=== PATIENT | female | born 1985 | race Two or more races ===

== ENCOUNTER 2020-03-07 02:14 | Observation (INO) ==
[2020-03-07] MEDS ORDERED: Morphine 2 MG/ML SYRINGE IV PRN ×2 (02:47)
[2020-03-07] MEDS ORDERED: Metoclopramide 5 MG/ML VIAL (10 mg) IV SLOW PU PRN (02:51)
[2020-03-07] MEDS ORDERED: Zosyn 3.375 GM IV - ED ONCE IV ONE (03:00)
[2020-03-07] MEDS ORDERED: NS 0.9% 1000 ml BAG 1,000 ML IV SCH (03:00)
[2020-03-07] MEDS ORDERED: NS 0.9% 1000 ml BAG 1,000 ML IV ONE ×2 (03:34→08:10)
[2020-03-07] MEDS ORDERED: Piperacillin/Tazobac ADVAN 3.375 GM in NS 0.9% 100 ml BAG 100 ML IV SCH (06:00)
[2020-03-07] MEDS ORDERED: Rocuronium 50 mg VIAL 10 mg/ml 5 ml VIAL (50 mg) ONE (11:03)
[2020-03-07] MEDS ORDERED: Succinylcholine 200 mg VIAL 20 mg/ml 10 ml VIAL (200 mg) ONE (11:03)
[2020-03-07] MEDS ORDERED: Midazolam 2 mg/2 ml VIAL 1 mg/ml 2 ml VIAL (2 mg) ONE (11:16)
[2020-03-07] MEDS ORDERED: fentaNYL 250 mcg/5 ml 50 MCG/ML 5 ml VIAL (250 MCG) ONE (11:16)
[2020-03-07] MEDS ORDERED: Propofol 10 MG/ML 20 ML BTL ONE (11:16)
[2020-03-07] MEDS ORDERED: Metoclopramide 5 MG/ML VIAL (10 mg) ONE (11:18)
[2020-03-07] MEDS ORDERED: Ondansetron 4 mg VIAL 2 MG/ML 2 ml VIAL ONE (11:18)
[2020-03-07] MEDS ORDERED: Dexamethasone IV 4 MG/ML VIAL 1 ml VIAL ONE (11:18)
[2020-03-07 11:33] LABS: ABS Eosinophils 0.4 10^3/ul (0-0.6); ABS Lymphocytes 1.4 10^3/ul (1.0-4.8); ABS Monocytes 0.6 10^3/ul (0-0.8); ABS Neutrophils 2.9 10^3/ul (1.5-7.7); Hematocrit 30 % (35-47); Hemoglobin 9.7 g/dL (12.0-16.0); Lymphocyte % 26.4 %; Mean Corpuscular HGB Conc 33 g/dL (31-36); Mean Corpuscular Hemoglobin 27 pg (27-31); Mean Corpuscular Volume 84 fL (80-97); Mean Platelet Volume 11.6 fL (7.4-10.4); Nucleated Red Blood Cells % 0.1; Platelet Count 124 10^3/uL (150-450); Red Blood Count 3.55 10^6 /uL (3.70-4.87); Red Cell Distribution Width 14 % (10-15); White Blood Count 5.2 10^3/uL (3.5-10.8)
[2020-03-07 11:39] LABS: Calcium 7.6 mg/dL (8.6-10.3); Potassium 3.8 mmol/L (3.5-5.0)
[2020-03-07 11:44] LABS: BUN/Creatinine Ratio 18.5 (8-20); EGFR African American 125.5 (>60); EGFR Non-African American 103.7 (>60)
[2020-03-07 12:06] LABS: Activated Partial Thrombo Time 28.9 seconds (26.0-38.0); INR 1.23 (0.82-1.09)
[2020-03-07] MEDS ORDERED: Acetaminophen IV 1 GM/100ML 100 ML ONE (13:48)
[2020-03-07] MEDS ORDERED: Esmolol 10 MG/ML 10 ML (100 mg) ONE (14:38)
[2020-03-07] MEDS ORDERED: DiMENhydriNATE IV 50 mg/ml 1 ml VIAL IV PUSH PRN (14:52)
[2020-03-07] MEDS ORDERED: fentaNYL 100 mcg/2 ml 50 MCG/ML VIAL IV PRN (14:52)
[2020-03-07] MEDS ORDERED: oxyCODONE/Acetamin 5/325 mg TAB PO PRN (14:52)
[2020-03-07] MEDS ORDERED: Ondansetron 4 mg VIAL 2 MG/ML 2 ml VIAL IV PRN (14:52)
[2020-03-07] MEDS ORDERED: HYDROmorphone 1 MG/1 ML SYRINGE IV PRN (14:52)
[2020-03-07] MEDS ORDERED: Naloxone 0.4 mg VIAL 0.4 mg/ml 1 ml VIAL IV PRN (14:52)
[2020-03-07 16:29] VITALS: BP 99/72
== END 2020-03-07 16:31 | disposition home or self-care (01) ==
LOC: MED 02:14 → ED 02:14 → MED 03:42
PROVIDERS: ADMIT Surgery; ATTEND Surgery